=== PATIENT | female | born 2000 | race Caucasian/White ===

== ENCOUNTER 2024-02-11 07:11 | Emergency (ER) | payer MEDICAID ==
[~2024-02-11] VITALS: Ht 154.9 cm; Wt 68.5 kg
[~2024-02-11 07:11] MED LIST: ALBU0.0912 INH; FAMO20TA13 PO; FLUT16SP9 NS; FLUT1DSK2 IH; LORA10TA19 PO; METH4TAB1 PO; MONT-72 PO; TRAM100C2 PO
[2024-02-11 07:16] VITALS: BP 121/80; PULSE 79; RESP 16; TEMP 97.4; O2SAT 98
[2024-02-11] MEDS: KETOROLAC 30 MG/ML VIAL IM ONE (08:22)
[2024-02-11] MEDS ORDERED: NAPR-1559 PO (09:24)
[2024-02-11 09:37] VITALS: BP 125/78; PULSE 68; RESP 14; TEMP 98; O2SAT 99
== END 2024-02-11 09:37 | disposition home or self-care (01) ==
LOC: MED 07:11
DX: M94.0 Chondrocostal junction syndrome [Tietze] (principal); Z79.899 Other long term (current) drug therapy
CPT/HCPCS: 71045; 81002; 81025; 96372; 99283; J1885